=== PATIENT | female | born 1935 | race Caucasian/White ===

== ENCOUNTER 2018-08-30 02:48 | Inpatient (IN) | payer MEDICARE, BC ==
[~2018-08-30] VITALS: Ht 157.5 cm; Wt 59.5 kg
[2018-08-30] MEDS ORDERED: ZYRTEC10 MG PO (02:53)
[2018-08-30] MEDS ORDERED: GABAPENTIN100 MG PO (02:54)
[2018-08-30] MEDS ORDERED: LEXAPRO20 MG PO (02:54)
[2018-08-30] MEDS ORDERED: BENTYL10 MG PO (02:54)
[2018-08-30] MEDS ORDERED: COMPAZINE25 MG RC (02:55)
[2018-08-30] MEDS ORDERED: SYNTHROID100 MCG PO (02:55)
[2018-08-30] MEDS ORDERED: TRIPHROCAPS PO (02:56)
[2018-08-30] MEDS ORDERED: AMBIEN5 MG PO (02:56)
[2018-08-30] MEDS ORDERED: REQUIP0.5 MG PO (02:56)
[2018-08-30] MEDS ORDERED: PROTONIX40 MG PO (02:57)
[2018-08-30 03:31] LABS: BASOPHILS 0.1 % (0-2); EOSINOPHILS 0 % (0-7); HEMOGLOBIN 9.3 g/dL (12-16); IMMATURE GRANULOCYTES 0.2 % (0-5); LYMPHOCYTES 9.1 % (15-50); MCH 30.9 pg (26.0-34.0); MCHC 32.1 g/dL (31.0-37.0); MCV 96.3 fL (80.0-100.0); MEAN PLATELET VOLUME 9.8 fL (7.4-10.4); MONOCYTES 7.4 % (2-11); NEUTROPHILS 83.2 % (40-80); PLATELET COUNT 198 10x3/uL (130-400); RBC 3.01 10x6/uL (4.00-5.40); RDW 17.2 % (11.5-14.5); WBC 9.5 10x3/uL (4.8-10.8)
[2018-08-30 03:46] LABS: ALBUMIN 2.4 g/dL (3.4-5.0); ALKALINE PHOSPHATASE 56 U/L (46-116); ALT (SGPT) 21 U/L (10-68); BILIRUBIN - TOTAL 1.48 mg/dL (0.2-1.3); CALC OSMOLALITY 281 mosm/kg (275-300); CALCIUM 9.3 mg/dL (8.5-10.1); CARBON DIOXIDE 21.8 mmol/L (21.0-32.0); CHLORIDE - SERUM 103 mmol/L (98-107); CREATININE - SERUM 4.5 mg/dL (0.6-1.3); GLUCOSE 132 mg/dL (74-106); POTASSIUM - SERUM 4.2 mmol/L (3.5-5.1); PROTEIN - SERUM 5.5 g/dL (6.4-8.2); SODIUM 137 mmol/L (136-145); UREA NITROGEN 28 mg/dL (7-18); eGFR NON AFRICAN AMERICAN 10 mL/min (90-120)
[2018-08-30 03:47] LABS: INR 1.86 (0.85-1.17); PROTIME 20.8 SECONDS (11.6-15.0)
[2018-08-30 03:54] VITALS: BP 134/52
[2018-08-30 04:01] LABS: CKMB 2.9 U/L (0.0-3.6); CREATINE KINASE 80 UL (21-215)
--- NOTE | 2018-08-30 04:01 | NUR ---
XOCHITL DAUGHTER: [phone]
[2018-08-30 04:03] LABS: TROPONIN-I 0.123 ng/mL (0.000-0.060)
--- NOTE | 2018-08-30 04:07 | NUR ---
CRITICAL LAB VALUE CALLED IN FROM GABY FROM LAB: TROPONIN 0.123. EDP INFORMED AT THIS TIME.
[2018-08-30 04:38] VITALS: BP 115/53
[2018-08-30 06:26] VITALS: BP 115/53; BMI 23.6
--- NOTE | 2018-08-30 07:30 | NUR ---
RECEIVED PT IN BED EYES CLOSED RESP UNLABORED NAD NOTED
[2018-08-30 08:44] VITALS: BP 139/55
[2018-08-30 10:57] LABS: UDS - AMPHET NEGATIVE QUAL (NEGATIVE); UDS - BARB NEGATIVE QUAL (NEGATIVE); UDS - BENZO NEGATIVE QUAL (NEGATIVE); UDS - COCAINE NEGATIVE QUAL (NEGATIVE); UDS - OPIATE POSITIVE QUAL (NEGATIVE); UDS - PCP NEGATIVE QUAL (NEGATIVE); UDS - THC NEGATIVE QUAL (NEGATIVE)
[2018-08-30 11:06] LABS: APPEARANCE HAZY (CLEAR); BILIRUBIN NEGATIVE (NEGATIVE); COLOR DK YELLOW (YELLOW); GLUCOSE NEGATIVE (NEGATIVE); KETONE NEGATIVE (NEGATIVE); NITRITE NEGATIVE (NEGATIVE); PROTEIN 1+ mg/dL (NEGATIVE); UROBILINOGEN NORMAL (NORMAL)
[2018-08-30 11:08] LABS: BACTERIA MANY /hpf (NONE SEEN); EPITHELIAL CELLS 0-5 /hpf (0-5)
[2018-08-30 11:18] VITALS: Ht 157.5 cm; Wt 59.5 kg
[2018-08-30 13:31] VITALS: BP 118/46
--- NOTE | 2018-08-30 16:00 | NUR ---
ATTEMPTED TO PLACE SCDs ON PT PT REFUSED SAID HER LEGS HURT TO BAD FAMILY REQUEST THAT SCDS NOT BE PLACED
--- NOTE | 2018-08-30 16:11 | NUR ---
PT TO DIALYSIS VIA BED AT THIS TIME
--- NOTE | 2018-08-30 19:30 | NUR ---
INITIAL ROUNDS. PT IS OUT OF ROOM TO DIALYSIS.
[2018-08-30 20:00] VITALS: BP 102/43
--- NOTE | 2018-08-30 20:00 | NUR ---
PT NOW RETURNED FORM DIALYSIS. ASSESSMENT COMPLETED. PT CONFUSED. IV CARDIZEM @ 10ML/HR INFUSING TO RFA. LEFT ARM RESERVED. DRESSINGS IN PLACE FROM HEMODIALYSIS. FALL PRECAUTIONS IN PLACE. ORIENTATION TO TIME/SITUATION. MONITOR AND CPOC.
--- NOTE | 2018-08-30 22:00 | NUR ---
BEDTIME MEDS GIVEN. PT KEEPS HER TEETH CLENCHED AND IT IS VERY HARD TO GET HER TO TAKE HER MEDS. SHE IS CONFUSED. SHE KEEPS LOOKING FOR HER AND HER DAUGHTER. RESTLESS IN BED. FREQUENTLY TOSSING OF COVERS. IV CARDIZEM INFUSING. 67 CAF PER TELEMETRY.
[2018-08-31] VITALS: BP 102/43
--- NOTE | 2018-08-31 03:16 | NUR ---
PT LYING IN BED. AWAKE/CONFUSED/CALLING OUT FOR "DREAD". DISORIENTED TO SITUATION/PLACE/PERSON. CLEAN/DRY. FREQUENTLY MUST STRAIGHTEN COVERS SINCE PT IS RESTLESS AND THROWING THEM OFF. MONITOR AND PROVIDE SAFE ENVIRONMENT.
[2018-08-31 04:00] VITALS: BP 117/44
[2018-08-31 05:15] LABS: HEMATOCRIT 31.4 % (36.0-48.0); HEMOGLOBIN 9.9 g/dL (12-16); MCH 30.7 pg (26.0-34.0); MCHC 31.5 g/dL (31.0-37.0); MCV 97.5 fL (80.0-100.0); MEAN PLATELET VOLUME 10.3 fL (7.4-10.4); PLATELET COUNT 212 10x3/uL (130-400); RBC 3.22 10x6/uL (4.00-5.40); RDW 17.6 % (11.5-14.5)
[2018-08-31 05:17] LABS: WBC 14.6 10x3/uL (4.8-10.8)
[2018-08-31 05:20] LABS: ANION GAP 22.9 mmol/L (8-16); CALCIUM 9.5 mg/dL (8.5-10.1); CARBON DIOXIDE 18.4 mmol/L (21.0-32.0); CREATININE - SERUM 3.6 mg/dL (0.6-1.3); MAGNESIUM - SERUM 2.1 mg/dL (1.8-2.4); PHOSPHOROUS 4.8 mg/dL (2.5-4.9); POTASSIUM - SERUM 4.3 mmol/L (3.5-5.1)
[2018-08-31 05:43] LABS: LYMPHOCYTES 14 % (15-50); MONOCYTES 4 % (2-11); NEUTROPHILS 80 % (40-80); PLATELET ESTIMATE NORMAL
--- NOTE | 2018-08-31 07:30 | NUR ---
RECEIVED PT IN BED EYES CLOSED RESP UNLABORED NAD NOTED
--- NOTE | 2018-08-31 09:00 | NUR ---
PT REFUSED BREAKFAST BUT CONSUMED 4 OZ OF PUDDING TOLERATED WELL
[2018-08-31 09:25] VITALS: BP 126/48
--- NOTE | 2018-08-31 12:30 | NUR ---
PT ATE FEW BITES OF CHICKEN WITH MASHED POTATOES AND GRAvy about 5%
[2018-08-31 14:03] VITALS: BP 119/47
[2018-08-31] MEDS ORDERED: BETAPACE 80 MG80 MG PO (14:34)
[2018-08-31 20:00] VITALS: BP 130/50
--- NOTE | 2018-08-31 20:00 | NUR ---
INITIAL ROUNDS AND ASSESSMENT COMPLETED. PT RESTING IN BED. ALERT/CONFUSED. RESTLESS. THROWING COVERS OFF. CLEAN/DRY. O2 @ 2L/NC WITH NONLABORED RESPIRATIONS. PT UNAWARE THAT HER HAS . HER CHILDREN WILL BE HERE TOMORROW TO PICK HER UP AND TELL HER. MAINTAIN IN A SAFE AND SECURE ENVIRONMENT. FALL PRECAUTIONS IN PLACE.
[2018-09-01] VITALS (44 sets, daily range): BP systolic 86–129; BP diastolic 27–72
--- NOTE | 2018-09-01 03:57 | NUR ---
RESTING IN BED WITH EYES CLOSED. O2 @ 2L/NC WITH SHALLOW/SLIGHTLY LABORED RESPIRATIONS. PULLED UP AND REPOSITIONED. CALL LIGHT IN REACH.
--- NOTE | 2018-09-01 07:50 | NUR ---
02 SAT 98% ON RA. WILL CONT. PLAN OF CARE.
--- NOTE | 2018-09-01 08:23 | NUR ---
WAS ABLE TO GET HER TO TAKE HER BETAPACE, THEN SHE REFUSED TO TAKE THE REST OF HER MEDICINE.
--- NOTE | 2018-09-01 09:57 | NUR ---
WHEEPING ADEMA NOTED TO RIGHT BREAST. WILL MONITOR.
--- NOTE | 2018-09-01 10:42 | NUR ---
DC CANCELLED. FAMILY NOTIFIED.
--- NOTE | 2018-09-01 11:37 | MORECARE ---
CASE MANAGEMENT DISCHARGE SUMMARY PATIENT: EMILY HERNANDEZ UNIT: [id number] ADM DATE: 08/30/18 AGE: 82 : 34 SEX: F ROOM/BED: D.[facility]8 AUTHOR: GEOFFREY QUIÑONES PHYSICIAN: REFERRING PHYSICIAN: JULIET CHRISTINA MD DATE OF SERVICE: 09/01/18 Discharge Plan Patient Name: EMILY HERNANDEZ [facility] [facility] 1935 Planned Disposition: Fpc Facility Anticipated Discharge Date: 09/02/18 Discharge Date: Expected LOS: 3 Initial Reviewer: [email or web address] Initial Review Date: 09/01/2018 Generated: 09/01/18 12:36 pm External [facility] Next Contact Date: 09/01/2018 Service Request Date: Service Type: Resolution: Reviewer: Comments: Coverage Notice Reviewer: [email or web address] Cline Notice Issued Date-Time: 09/01/2018 9:55 Notice Type: IM Discharge Notice Notice Delivered To: Patient Relationship to Patient: Dam Tender Assistant Name: Delivery Method: HAND - Hand Delivered Diana Days: Prior Verbal Notification: Recipient Understood Notice: Recipient Signature: Med Rec Note Co-signed by Attending: Coverage Notice Comment: Reviewer: [email or web address] Cline Notice Issued Date-Time: 09/01/2018 11:00 Notice Type: Patient Choice Letter Notice Delivered To: Family Member Relationship to Patient: Daughter Dam Tender Assistant Name: XOCHITL IZAGUIRRE Delivery Method: PHONE - Phone Diana Days: Prior Verbal Notification: Recipient Understood Notice: Yes Recipient Signature: Med Rec Note Co-signed by Attending: Coverage Notice Comment: [facility] [place] Patient Name: EMILY HERNANDEZ Page [phone] at 1137 All edits/amendments must be made on the electronic document DICTATION DATE: 09/01/18 1136 MASS SPECTROMETRY MANAGER: ROXANNE 09/01/18 1136 RPT#: [id number] DC DATE: STATUS: ADM IN [facility] [address] [place] [address] END OF REPORT
--- NOTE | 2018-09-01 11:45 | MORECARE ---
CASE MANAGEMENT DISCHARGE SUMMARY PATIENT: EMILY HERNANDEZ UNIT: [id number] ADM DATE: 08/30/18 AGE: 82 : 34 SEX: F ROOM/BED: D.2118 AUTHOR: GEOFFREY QUIÑONES PHYSICIAN: REFERRING PHYSICIAN: JULIET CHRISTINA MD DATE OF SERVICE: 09/01/18 Discharge Plan Patient Name: EMILY [facility]NANDEZ [facility] 1935 Planned Disposition: Alf Facility Anticipated Discharge Date: 09/02/18 Discharge Date: Expected LOS: 3 Initial Reviewer: [email or web address] Initial Review Date: 09/01/2018 Generated: 09/01/18 12:44 pm Coverage Notice Reviewer: [email or web address] Joao Cline Notice Issued Date-Time: 09/01/2018 9:55 Notice Type: IM Discharge Notice Notice Delivered To: Patient Relationship to Patient: Wad Lubricator Name: Delivery Method: HAND - Hand Delivered Diana Days: Prior Verbal Notification: Recipient Understood Notice: Recipient Signature: Med Rec Note Co-signed by Attending: Coverage Notice Comment: Reviewer: [email or web address] Cline Notice Issued Date-Time: 09/01/2018 11:00 Notice Type: Patient Choice Letter Notice Delivered To: Family Member Relationship to Patient: Daughter Wad Lubricator Name: XOCHITL IZAGUIRRE Delivery Method: PHONE - Phone Diana Days: Prior Verbal Notification: Recipient Understood Notice: Yes Recipient Signature: Med Rec Note Co-signed by Attending: Coverage Notice Comment: [facility] [place] Last DP export: 09/01/18 10:37 am Patient Name: EMILY HERNANDEZ Page 50081 at 1145 All edits/amendments must be made on the electronic document DICTATION DATE: 09/01/18 1144 BROKE HANDLER: ROXANNE 09/01/18 1144 RPT#: [id number] DC DATE: STATUS: ADM IN [facility] [address] [place] [address] END OF REPORT
--- NOTE | 2018-09-01 11:52 | MORECARE ---
CASE MANAGEMENT DISCHARGE SUMMARY PATIENT: EMILY HERNANDEZ UNIT: [id number] ADM DATE: 08/30/18 AGE: 82 : 34 SEX: F ROOM/BED: D.1999 AUTHOR: ISHMAEL,DOC PHYSICIAN: REFERRING PHYSICIAN: JULIET CHRISTINA MD DATE OF SERVICE: 09/01/18 Discharge Plan Patient Name: EMILY HERNANDEZ Facility: [facility]:[place] : 1935 Planned Disposition: Custodial Facility Anticipated Discharge Date: 09/02/18 Discharge Date: Expected LOS: 3 Initial Reviewer: [email or web address] Initial Review Date: 09/01/2018 Generated: 09/01/18 12:52 pm Comments DCP- Discharge Planning Updated by [email or web address]: Deangelo Cline on 09/01/18 10:[address] Patient Name: EMILY HERNANDEZ Encounter No: [id number] : 1935 Primary Insurance: MEDICARE A & B Anticipated DC Date: 09-02-2018 Planned Disposition: Custodial Facility External Planned Provider: [facility] [place], MEDICARE REHAB BED DCP follow-up note: CM RECEIVED DISCHARGE PLANNING ORDER FROM WEEKEND. CM RECEIVED DISCHARG E ORDER TODAY. CM SPOKE TO BEDSIDE NURSE WHO INFORMED CM THAT SHE SPOKE TO PT'S FAMILY VIA PHONE THIS MORNING AND THEY ARE NOT ABLE TO TAKE CARE OF PATIENT AT HOME AND PT'S SPOUSE YESTERDAY. CM ATTEMPTED TO MEET WITH PT IN ROOM TO DISCUSS DISCHARGE PLANNING AND NEEDS. PT LETHARGIC, CM UNABLE TO AROUSE PT ENOUGH TO ASSESS. IMPORTANT MESSAGE FROM MEDICARE LEFT IN ROOM WITH CM CONTACT INFORMATION. FACE SHEET REVIEWED, HAD NO CONTACT INFORMATION FOR FAMILY OR PT'S HOME PHONE NUMBER. CM REVIEWED CHART, FOUND DAUGHTER'S NUMBER ON CHART FROM OUTSIDE HOSPITAL TRANSFER PAPERWORK. CM CALLED AND SPOKE TO XOCHITL IZAGUIRRE, DAUGHTER, . XOCHITL STATES THAT SHE LIVES WITH PT AT HOME. PT'S SPOUSE YESTERDAY AND THEY ARE MAKING ARRANGEMENTS TODAY. XOCHITL IS PT'S SOLE CAREGIVER AT HOME AND ASSISTS WITH WALKING, STANDING UP, SITTING DOWN, BATHING, DRESSING, MEDICATION MANAGEMENT AND TRANSPORTATION TO AND FROM DIALYSIS. PT [facility] ON [address], [address] SCHEDULE. PT HAS A WALKER AT HOME WITH NO MEDICAL EQUIPMENT PROVIDER PREFERENCE. XOCHITL WOULD LIKE PT PLACED AT [facility] IN [place] SHE CANNOT TAKE CARE OF PT AT HOME ANY LONGER AND PT'S SPOUSE WAS THERE UNTIL HE PASSED. XOCHITL DID NOT HAVE PT'S SOCIAL SECURITY NUMBER BUT WILL GET IF FROM HOME AND CALL CM LATER IT IS NOT AVAILABLE IN REGISTRATION PAPERWORK. CHOICE LETTER COMPLETED FOR [facility] IN [place]. CM WAITING ON PHYSICAL THERAPY EVALUATION. CM NOTIFIED [facility] REGARDING PLACEMENT REQUEST, . CM FAXED REFERRAL FOR PLACEMENT TO [facility] AT [phone]. CM WAITING ADMISSION DETERMINATION FROM [facility] IN [place]. Deangelo Cline, CASE MANAGEMENT Coverage Notice Reviewer: [email or web address] Joao Cline Notice Issued Date-Time: 09/01/2018 9:55 Notice Type: IM Discharge Notice Notice Delivered To: Patient Relationship to Patient: Control Room Helper Name: Delivery Method: HAND - Hand Delivered Diana Days: Prior Verbal Notification: Recipient Understood Notice: Recipient Signature: Med Rec Note Co-signed by Attending: Coverage Notice Comment: Reviewer: [email or web address] Joao Cline Notice Issued Date-Time: 09/01/2018 11:00 Notice Type: Patient Choice Letter Notice Delivered To: Family Member Relationship to Patient: Daughter Control Room Helper Name: XOCHITL IZAGUIRRE Delivery Method: PHONE - Phone Diana Days: Prior Verbal Notification: Recipient Understood Notice: Yes Recipient Signature: Med Rec Note Co-signed by Attending: Coverage Notice Comment: [facility] [place] Last DP export: 09/01/18 10:44 am Patient Name: EMILY HERNANDEZ Page [phone] at 1152 All edits/amendments must be made on the electronic document DICTATION DATE: 09/01/18 1151 MAP MOUNTER: ROXANNE 09/01/18 1151 RPT#: [id number] DC DATE: STATUS: ADM IN [facility] [address] [place] [place] [address] END OF REPORT
--- NOTE | 2018-09-01 13:04 | NUR ---
HR 28. NO PULSE. NO RESP. CODE BLUE CALLED
--- NOTE | 2018-09-01 13:19 | NUR ---
INTUBATED BY DR. PEREZ. B/P 114/92, HR 85. TO ICU BY BED.
--- NOTE | 2018-09-01 13:20 | NUR ---
TO ICU VIA STAFF, HR 59 SB, THIS NURSE CALLED NOTED EMERGENCY CONTACT AND SHE IN TURN CALLED THE SONS, PATIENT IS INTUBATED AND ON THE VENTILATOR, SEE FLOW SHEETS
--- NOTE | 2018-09-01 13:25 | NUR ---
RECD. PATIENT POST CODE IN ICU, PLACED INTO ROOM 2303, INTUBATED, RT BAGGING AT 100%, PLACED ON ICU BED PER STAFF. SEE FLOW SHEETS
--- NOTE | 2018-09-01 13:35 | NUR ---
Nutrition follow-up: Diet: low sodium PO intake has been very poor Pt with some confusion noted per nursing Pt coded and tx to ICU; now intubated Wt: 128# RDN following.
[2018-09-01 17:53] LABS: CKMB 35.3 U/L (0.0-3.6)
[2018-09-01 17:56] LABS: CREATINE KINASE 1154 UL (21-215)
[2018-09-01 17:57] LABS: TROPONIN-I 3.192 ng/mL (0.000-0.060)
--- NOTE | 2018-09-01 18:47 | NUR ---
NO NO PARTICULAR ORDER TODAY: DR. FONTENOT PLACED CVL FS BS FELL INTO TEENS TF STARTED TO HELP MAINTAIN GLUCOSE NGT PLACED PATINET CURRENTLY MAXED OUT ON LEVOPHED WITH A MODERATED BP.
--- NOTE | 2018-09-01 19:20 | NUR ---
REC'D TO CARE, [facility] CONSULTANT PER FLOWSHEET. PT ON MECH VENT VIA OETT, UNRESPONSIVE POST CODE, NO SEDATION, ONLY RESPONSE + GAG. IVFS INFUSING TO R TLSC, DSG C/D/I - SEE FLOWSHEET. RESERVE L ARM - FISTULA WITH + BRUIT/THRILL. SKIN NOTED TO BE MOTTLED, WITH CYANOTIC NAIL BEDS. ALARMS ON.
--- NOTE | 2018-09-01 20:00 | NUR ---
NO VISITORS. WILL CONT Q2 HR TURN AND ORAL CARE PER PROTOCOL.
[2018-09-01 21:47] LABS: CKMB 47.6 U/L (0.0-3.6); CREATINE KINASE 1142 UL (21-215)
--- NOTE | 2018-09-01 21:56 | NUR ---
NEW CARDIAC ENZYME RESULTS CALLED TO DR. HSU, ALSO NOTIFIED OF GLUCOSE 192, ORDER TO STOP D10.
--- NOTE | 2018-09-01 23:24 | NUR ---
REASSESSMENT PER FLOWSHEET, NO ACUTE CHANGES. CM - SB WITH PACS. B/P WITHIN PARAMETERS WITH LEVOPHED UNCHANGED.
[2018-09-02] VITALS (21 sets, daily range): BP systolic 83–104; BP diastolic 38–61
--- NOTE | 2018-09-02 01:37 | NUR ---
SBP < 90 - INITIATE VASOPRESSIN GTT PER MD ORDERS. WILL TITRATE PER ORDERS.
--- NOTE | 2018-09-02 03:24 | NUR ---
REASSESSMENT PER FLOWSHEET, NO ACUTE CHANGES. PT DID BITE DOWN WITH ORAL CARE AND SLIGHTLY LIFTED EXTR WITH GAG. SBP > 100 .
[2018-09-02 03:39] LABS: CKMB 46.3 U/L (0.0-3.6); VANCOMYCIN - RANDOM 14.7 ug/mL (10.0-20.0)
[2018-09-02 03:42] LABS: CREATINE KINASE 1323 UL (21-215); TROPONIN-I 10.595 ng/mL (0.000-0.060)
--- NOTE | 2018-09-02 04:45 | NUR ---
DR. PO JUSTICE RE: CRITICAL PH
--- NOTE | 2018-09-02 05:03 | NUR ---
DR. PO JUSTICE.
--- NOTE | 2018-09-02 05:11 | NUR ---
ASYSTOLE ON MONITOR, NO PALP PULSE, RR 18 ON VENT. PT IS DNR.
--- NOTE | 2018-09-02 05:15 | NUR ---
DR. HSU NOTIFIED OF PT ASYSTOLE AND NO PULSE.
--- NOTE | 2018-09-02 05:26 | NUR ---
DR. DEL CASTILLO HERE AND PRONOUNCED PT.
--- NOTE | 2018-09-02 05:28 | NUR ---
DR. FONTENOT NOTIFIED OF PT EXPIRATION
--- NOTE | 2018-09-02 05:30 | NUR ---
SON SAM NOTIFIED OF PT PASSING. HE IS COMING TO HOSPITAL.
[2018-09-02 05:46] LABS: BASOPHILS 0.9 % (0-2); EOSINOPHILS 0 % (0-7); HEMATOCRIT 36.9 % (36.0-48.0); HEMOGLOBIN 10.8 g/dL (12-16); IMMATURE GRANULOCYTES 0.9 % (0-5); LYMPHOCYTES 8.3 % (15-50); MCH 31.1 pg (26.0-34.0); MCHC 29.3 g/dL (31.0-37.0); MCV 106.3 fL (80.0-100.0); MEAN PLATELET VOLUME 10.1 fL (7.4-10.4); MONOCYTES 6.2 % (2-11); NEUTROPHILS 83.7 % (40-80); PLATELET COUNT 74 10x3/uL (130-400); RBC 3.47 10x6/uL (4.00-5.40); RDW 18.9 % (11.5-14.5); WBC 25.7 10x3/uL (4.8-10.8)
--- NOTE | 2018-09-02 06:01 | NUR ---
HAMIDA NOTIFIED AT 0537 - DECLINED PT. POST MORTEM CARE DONE.
[2018-09-02 06:04] LABS: ALBUMIN 2.1 g/dL (3.4-5.0); BILIRUBIN - TOTAL 3.32 mg/dL (0.2-1.3); CALCIUM 8.6 mg/dL (8.5-10.1); PROTEIN - SERUM 4.7 g/dL (6.4-8.2)
--- NOTE | 2018-09-02 06:15 | NUR ---
SON HERE. [facility] [place] NOTIFIED PER HIS REQUEST.
[2018-09-02 06:24] LABS: POTASSIUM - SERUM 6.3 mmol/L (3.5-5.1)
[2018-09-02 06:25] LABS: CARBON DIOXIDE 8.3 mmol/L (21.0-32.0)
--- NOTE | 2018-09-02 08:01 | NUR ---
FH HAS TAKEN REMAINS
--- NOTE | 2018-09-02 08:52 | MORECARE ---
CASE MANAGEMENT DISCHARGE SUMMARY PATIENT: EMILY HERNANDZE UNIT: [id number] ADM DATE: 08/30/18 AGE: 82 : 34 SEX: F ROOM/BED: D.2303 AUTHOR: ISHMAEL,DOC PHYSICIAN: REFERRING PHYSICIAN: JULIET CRHISTINA MD DATE OF SERVICE: 09/02/18 Discharge Plan Patient Name: EMILY HERNANDEZ Facility: [facility]:[place] : 1935 Planned Disposition: Retirement Facility Anticipated Discharge Date: 09/02/18 Discharge Date: 09/02/2018 Expected LOS: 3 Initial Reviewer: [email or web address] Initial Review Date: 09/01/2018 Generated: 09/02/18 9:52 am Comments DCP- Discharge Planning Updated by [email or web address]: Deangelo Cline on 09/01/18 10:[address] Patient Name: EMILY HERNANDEZ Encounter No: [id number] : 1935 Primary Insurance: MEDICARE A & B Anticipated DC Date: 09-02-2018 Planned Disposition: Retirement Facility External Planned Provider: [facility] [place], MEDICARE REHAB BED DCP follow-up note: CM RECEIVED DISCHARGE PLANNING ORDER FROM WEEKEND. CM RECEIVED DISCHARG E ORDER TODAY. CM SPOKE TO BEDSIDE NURSE WHO INFORMED CM THAT SHE SPOKE TO PT'S FAMILY VIA PHONE THIS MORNING AND THEY ARE NOT ABLE TO TAKE CARE OF PATIENT AT HOME AND PT'S SPOUSE YESTERDAY. CM ATTEMPTED TO MEET WITH PT IN ROOM TO DISCUSS DISCHARGE PLANNING AND NEEDS. PT LETHARGIC, CM UNABLE TO AROUSE PT ENOUGH TO ASSESS. IMPORTANT MESSAGE FROM [employer] LEFT IN ROOM WITH CM CONTACT INFORMATION. FACE SHEET REVIEWED, HAD NO CONTACT INFORMATION FOR FAMILY OR PT'S HOME PHONE NUMBER. CM REVIEWED CHART, FOUND DAUGHTER'S NUMBER ON CHART FROM OUTSIDE HOSPITAL TRANSFER PAPERWORK. CM CALLED AND SPOKE TO XOCHITL IZAGUIRRE, DAUGHTER, . XOCHITL STATES THAT SHE LIVES WITH PT AT HOME. PT'S SPOUSE YESTERDAY AND THEY ARE MAKING ARRANGEMENTS TODAY. XOCHITL IS PT'S SOLE CAREGIVER AT HOME AND ASSISTS WITH WALKING, STANDING UP, SITTING DOWN, BATHING, DRESSING, MEDICATION MANAGEMENT AND TRANSPORTATION TO AND FROM DIALYSIS. PT GOES TO DIALYSIS IN [facility] ON [address], [address] SCHEDULE. PT HAS A WALKER AT HOME WITH NO MEDICAL EQUIPMENT PROVIDER PREFERENCE. XOCHITL WOULD LIKE PT PLACED AT [facility] IN [place] SHE CANNOT TAKE CARE OF PT AT HOME ANY LONGER AND PT'S SPOUSE WAS THERE UNTIL HE PASSED. XOCHITL DID NOT HAVE PT'S SOCIAL SECURITY NUMBER BUT WILL GET IF FROM HOME AND CALL CM LATER IT IS NOT AVAILABLE IN REGISTRATION PAPERWORK. CHOICE LETTER COMPLETED FOR [facility] IN [place]. CM WAITING ON PHYSICAL THERAPY EVALUATION. CM NOTIFIED [facility] WITH [facility] REGARDING PLACEMENT REQUEST, . CM FAXED REFERRAL FOR PLACEMENT TO [facility] AT [phone]. CM WAITING ADMISSION DETERMINATION FROM [facility] IN [place]. Deangelo Cline, CASE MANAGEMENT Coverage Notice Reviewer: [email or web address] Joao Cline Notice Issued Date-Time: 09/01/2018 9:55 Notice Type: IM Discharge Notice Notice Delivered To: Patient Relationship to Patient: Saddle Stitcher Name: Delivery Method: HAND - Hand Delivered Diana Days: Prior Verbal Notification: Recipient Understood Notice: Recipient Signature: Med Rec Note Co-signed by Attending: Coverage Notice Comment: Reviewer: [email or web address] Joao Cline Notice Issued Date-Time: 09/01/2018 11:00 Notice Type: Patient Choice Letter Notice Delivered To: Family Member Relationship to Patient: Daughter Saddle Stitcher Name: XOCHITL IZAGUIRRE Delivery Method: PHONE - Phone Diana Days: Prior Verbal Notification: Recipient Understood Notice: Yes Recipient Signature: Med Rec Note Co-signed by Attending: Coverage Notice Comment: [facility] IN [place] Last DP export: 09/01/18 10:52 am Patient Name: EMILY HERNANDEZ Page [phone] at 0852 All edits/amendments must be made on the electronic document DICTATION DATE: 09/02/18851 SHORT GOODS DRIER: ROXANNE 09/02/18851 RPT#: [id number] DC DATE:09/02/18 STATUS: DIS IN [facility] [address] [place] [address] END OF REPORT
--- NOTE | 2018-09-05 16:41 | EC ---
PATIENT:EMILY HERNANDEZ DATE OF SERVICE: 08/30/18 SEX: F MEDICAL RECORD: [id number] DATE OF : [birth year] LOCATION:[facility] D.230 AGE OF PATIENT: 82 ADMISSION DATE: 08/30/18 REFERRING PHYSICIAN: INTERPRETING PHYSICIAN: MAIKEL BALL MD ECHOCARDIOGRAM REPORT ECHO CHARGES 4 ECHO COMPLETE Date: 08/30/18 CLINICAL DIAGNOSIS: AF ECHOCARDIOGRAPHIC MEASUREMENTS (adult normal given) AC root (d.<3.7cm) 2.8 cm LV Septum d (<1.2 cm> 1.0 cm Valve Excursion 1.8 cm LV Septum (systole) 1.5 cm Left Atria (s.<4.0cm> 4.6 cm LVPW d(<1.2cm) 1.1 cm RV (d.<2.3cm) 3.4 cm LVPW (sytole) 1.7 cm LV diastole(<5.6CM) 4.8 cm MV E-F(>70mm/sec) cm LV systole 2.7 cm LVOT Diameter 1.7 cm MV exc.(>10mm) cm Est.ejection fraction (50-75%) % DOPPLER: LVIT cm/sec A cm/sec E 126 cm/sec LA cm/sec RVSP 78.2 mmHg LVOT 87.0 cm/sec AOP1/2T m/s Asc. Ao 144 cm/sec RVOT 42.0 cm/sec RA cm/sec PA 77.0 cm/sec AV Gradient Peak 8.3 mmHg AV Mean 2.5 mmHg AV Area 1.3 cm MV Gradient Peak 7.8 mmHg MV Mean 2.9 mmHg MV Area cm COMMENTS: Chuck Splitter: 1 CAT MEADOE Occupational Therapist Assistant: 1 Dr. Ball TAPE# PACS Pericardial Effusion Y DATE OF SERVICE: FINDINGS: 1. Left ventricular chamber size is within normal limits. Left ventricular systolic function is normal. Overall ejection fraction estimated at 55%. 2. Left atrium is enlarged at 4.6 cm. Right atrium and right ventricle chamber sizes are as well mildly dilated. 3. Valvular structures have normal structure and motion. 4. Doppler interrogation reveals moderate mitral regurgitation, severe tricuspid regurgitation, no other valvular insufficiency or stenosis. Pulmonary ECHOCARDIOGRAM REPORT [id number] EMILY HERNANDEZ systolic pressure is elevated estimated 7-8 mmHg. 5. Small pericardial effusion is present. This is not hemodynamically significant. No evidence of left ventricular thrombus. TRANSINT:[id number] Voice Confirmation ID: [id number] DOCUMENT ID: [id number] MAIKEL BALL MD at 1641 CC: [id number] DICTATION DATE: 08/31/18 1037 TAR KETTLE RUNNER: 08/31/18 1831 DIS IN 09/02/18 [place] [id number] [place] [id number]
--- NOTE | 2018-09-05 16:41 | CN ---
PATIENT NAME:EMILY BLANC MEDICAL RECORD: [id number] : [birth year] LOCATION:ELISED.2303 ADMIT DATE: 08/30/18 ACCOUNT: [id number] CONSULTING PHYSICIAN: MAIKEL MCNAMARA MD REFERRING PHYSICIAN: JULIET CHRISTINA MD DATE OF CONSULTATION: 08/30/2018 DIAGNOSES: 1. Confusion. 2. Atrial fibrillation. 3. End-stage renal failure, on dialysis. 4. Hypothyroidism, on replacement. 5. Gastroesophageal reflux disease. 6. Elevated troponin. 7. Frequent falls. HISTORY OF PRESENT ILLNESS: Mrs. Blanc is from [place]. She lives with her daughter. She began having worsening confusion starting Saturday. This worsened. She was more confused on dialysis , has continued to worsen and she was admitted to the hospital, transferred here for higher level of care on Saturday. Her confusion has actually improved now according to the daughter and she is pretty close to baseline. She was noted to be in atrial fibrillation. She has no history of atrial fibrillation. She denied any chest pain. She does not feel any palpitations. Her heart rate is in the 90-100 range. She is afebrile. Troponin is mildly elevated at 0.1. WBCs are within normal limits. She is mildly anemic with a hemoglobin of 9.3. PHYSICAL EXAMINATION: GENERAL APPEARANCE: Well-nourished, well-developed, appears stated age. Level of distress, comfortable. PSYCHIATRIC: Mental status, alert, normal affect. Orientation, oriented to time, place and person. EYES: Lids and conjunctiva, noninjected. No discharge, no pallor. ENT: Lips, teeth, gums, normal dentition. Oropharynx, no cyanosis, no pallor. NECK: Carotid arteries, bilateral normal upstroke, no bruits, no thrills. JUGULAR VEINS: No jugular venous pressure or distention. CERVICAL LYMPH NODES: Nontender, nonenlarged. THYROID: Not enlarged. Nontender. No nodules. LUNGS: Respiratory effort, unlabored. CHEST: Normal curvature. No thoracic deformity. No chest wall tenderness. Percussion, resonant. Auscultation, clear. No wheezes, no rales, no rhonchi. CARDIOVASCULAR: Precordial exam, nondisplaced. No heaves or pericardial thrills. Rate and rhythm, regular. Heart sounds, normal S1, normal S2. No S3, no gallop, no rub. Systolic murmur, not heard. Diastolic murmur, not heard. EXTREMITIES: No cyanosis, no edema. Peripheral pulses, full and equal in all extremities, except as noted. No bruits appreciated. ABDOMEN: Soft, nondistended. Normal aorta. No bruit. Nontender. No masses. Liver, nontender, no hepatomegaly. Spleen, nontender, no splenomegaly. MUSCULOSKELETAL: No joint tenderness. No joint swelling. No erythema. NEUROLOGICAL: Normal gait, normal strength, normal tone. SKIN: Warm and dry. OVERALL IMPRESSION: Atrial fibrillation. At this time, she is clearly not a candidate for anticoagulation secondary to fall. She has multiple bruises on her at baseline. We will rate control with sotalol 40 mg b.i.d. Her blood CONSULT REPORT [id number] EMILY BLANC pressure is tenuous in the 110 range. We will get an echocardiogram. Other than the echocardiogram, no other cardiac workup or treatment is necessary. TRANSINT:[id number] Voice Confirmation ID: [id number] DOCUMENT ID: [id number] MAIKEL MCNAMARA MD at 1641 CC: [id number] DICTATION DATE: 08/30/18 1051 GOVERNMENT PROPERTY INSPECTOR: 08/30/18 1137 DIS IN 09/02/[address] [address]
== END 2018-09-02 05:26 | DRG 308 ==
LOC: D.ER 02:48 → D.EDHOLD 04:40 → D.ICU 04:40 → D.M2 05:13 → D.ICU 09-01 13:34
PROVIDERS: Family Medicine; Internal Medicine Nephrology; ADMIT Family Medicine Adult Medicine; ATTEND Family Medicine Adult Medicine
PROC: 0BH17EZ Insertion of Endotracheal Airway into Trachea, Via Natural or Artificial Opening (ICD-10-PCS; principal; 2018-09-01)
PROC: 5A1935Z Respiratory Ventilation, Less than 24 Consecutive Hours (ICD-10-PCS; 2018-09-01)
PROC: 05HM33Z Insertion of Infusion Device into Right Internal Jugular Vein, Percutaneous Approach (ICD-10-PCS; 2018-09-01)
DX: I48.2 Chronic atrial fibrillation (principal); G93.41 Metabolic encephalopathy; A41.9 Sepsis, unspecified organism; N18.6 End stage renal disease; J96.01 Acute respiratory failure with hypoxia; J18.9 Pneumonia, unspecified organism; R65.20 Severe sepsis without septic shock; Z99.2 Dependence on renal dialysis; F03.90 Unspecified dementia, unspecified severity, without behavioral disturbance, psychotic disturbance, mood disturbance, and anxiety; R00.1 Bradycardia, unspecified; D63.1 Anemia in chronic kidney disease; M19.90 Unspecified osteoarthritis, unspecified site; K21.9 Gastro-esophageal reflux disease without esophagitis; E03.9 Hypothyroidism, unspecified; I46.9 Cardiac arrest, cause unspecified